=== PATIENT | female | born 1960 | race Caucasian/White ===

== ENCOUNTER 2017-12-28 19:47 | Inpatient (IN) | payer OTHER, SELFPAY ==
[2017-12-28] VITALS (9 sets, daily range): BP systolic 151–216; BP diastolic 84–130; PULSE 54–75; RESP 16–24; TEMP 36.6–37; O2SAT 96–100; BMI 20.7; BMI 19.8
--- NOTE | 2017-12-28 20:10 | EKG12_ITS ---
Test Reason : CP Blood Pressure : / mmHG Vent. Rate : 058 BPM Atrial Rate : 058 BPM P-R Int : 148 ms QRS Dur : 084 ms QT Int : 428 ms P-R-T Axes : 076 048 043 degrees QTc Int : 420 ms Sinus bradycardia Otherwise normal ECG Confirmed by ANEL JAMES, ZANA ([id number]), purchase request editor SHIN DAVENPORT ([id number]) on 12/30/2017 9:18:16 AM Referred By: Confirmed By:ZANA TAM MD
--- NOTE | 2017-12-28 20:10 | CT_ITS ---
STUDY: CT BRAIN WITHOUT CONTRAST REASON FOR EXAM: Female, 57 years old. Headache. RADIATION DOSAGE (If Supplied By Facility): CTDIvol = ( 44.99 ) mGy, DLP = ( 779.24 ) mGycm TECHNIQUE: Transaxial CT imaging of the brain was performed without administration of intravenous contrast material. Individualized dose optimization techniques were used for this CT. COMPARISON: None. FINDINGS: Normal soft tissue structures. Normal calvarium. Normal size ventricles and extra-axial spaces for the patient's age. Small low-density area that is not very well defined just inferior to the anterior most portion of the anterior horn of the left lateral ventricle. Otherwise, normal basal ganglia. Normal brainstem. Normal cerebellum. There is no intracranial hemorrhage. Normal visualized paranasal sinuses. CT/Brain/Head without Contrast IMPRESSION: Small low-density juxtapose the anterior horn of the left lateral ventricle probably in the adjacent deep white matter or putamen consistent with a subacute infarct, nonhemorrhagic. Otherwise normal CT exam of the brain. N.B. : The above information has been verbally conveyed by Tracy Dallas MD to Dr. Khoa Morris, Referring Physician, on 12/28/2017 20:57:30 (ET). Electronically Signed: Tracy Dallas MD at 20:53 EDT , Service support , N.B. : The above information has been verbally conveyed by Tracy Dallas MD to Dr. Khoa Morris, Referring Physician, on 12/28/2017 20:57:30 (ET).
--- NOTE | 2017-12-28 20:19 | ED.DCSUM_ITS ---
- ER Visit Summary Date of Service: 12/28/17 Chief Complaint: Bifrontal headache and elevated blood pressure History of Present Illness: The patient is a 57 F with no significant past medical history on herbal supplements presents with bifrontal headache that started 2-3 weeks ago. There are no alleviating, exacerbating precipitate factors. She has had intermittent blurred vision. She denies double vision or loss of vision. Denies ringing in ears. I trouble speech or swallowing. She denies any chest pain back pain shortness of breath. She denies nausea vomiting. Denies trouble with balance or walking. She had multiple elevated blood pressure readings. She had a significant elevated blood pressure reading at urgent care and was instructed to come to the emergency department. Physical Examination: Blood pressure 207 111. And the room she and her friends were playing. Once they stopped brain I began to ask questions and examined patient. Head is atraumatic normocephalic. Pupils are equal round reactive. Extraocular muscles are intact. TMs are pearly white with landmarks noted. Nares patent with no drainage. Posterior pharynx without erythema or exudate. Uvula is midline. There is no dysphonia or dysphasia. Trachea is midline. There is no stridor with auscultation of the neck. Difficult to see fundi secondary to cataracts. Cataracts worse on left than right. Neck supple. There is no carotid bruit. Heart is regular without murmur, gallop or rub. S1 and S2 are normal. Lungs are clear to auscultation with good movement of air bilaterally. Abdomen soft nontender. Patient is alert and oriented ?3. Motor is 5 over 5. Sensory is intact. DTRs are symmetric with no clonus or Babinski sign. Cranial 2 through 12 are intact. Cerebellar testing is normal. Test Results: CT of the head reveals a subacute ischemic stroke lateral left anterior horn best seen on image 19 of 42 axial cut. EKG reveals sinus bradycardia otherwise normal. CBC unremarkable. BMP potassium 3.4 and creatinine is 1.12 which is slightly low and elevated respectively. GFR is 54. Emergency Department Course and Treatment: To evaluate patient's headache with elevated blood pressure CT of the head was obtained. Also CBC, BMP and UA to evaluate for endorgan injury. She received 20 mg of labetalol. Treatment Plan: Patient was treated with labetalol 20 mg IV push ?2. Goal is a 15% reduction in systolic and diastolic pressure. The hospitalist has been paged to admit to either PCU stepdown versus ICU. Will review criteria to determine which unit is the most appropriate. Disposition: Admit for further monitoring testing Impression: 1. Hypertensive emergency 2. Subacute left hemispheric stroke lateral left anterior horn 3. Renal insufficiency 4. Sinus bradycardia documented on EKG This note was generated with [employer] dictation software. It may contain incorrect words, spelling, and punctuation that were not noted in review of the chart prior to signing ED Disposition - Plan for ED Patient: Chief Complaint: Hypertension Referrals: Tanner Lynch DO [Primary Care Provider] -
--- NOTE | 2017-12-28 20:29 | ED.RN ---
PHARMACY CALLED FOR TRANDATE
[2017-12-28 20:45] LABS: Absolute Lymphocyte Count 1.78 X10^3/ul (0.83-4.51); Absolute Neutrophil Count 4.6 X10^3/uL (2.0-7.7); Basophil# 0.01 X10^3/uL; Basophil% 0.1 % (0-1); Eosinophil# 0.07 X10^3/uL; Hematocrit 41.7 % (37-47); Hemoglobin 14.2 g/dl (12.0-15.0); Lymphocyte # 1.78 X10^3/ul (4.0); Lymphocyte % 25.4 % (19-41); Mean Corp Hgb Conc 34.1 g/gl (32-36); Mean Corpuscular Hgb 30.3 pg (27.0-32.0); Mean Corpuscular Volume 89.1 fL (81-99); Mean Platelet Vol. 10.3 fl (6.2-12.0); Monocyte# 0.58 X10^3/uL; Monocyte% 8.3 % (0-10); Neutrophil # 4.56 X10^3/uL (2.7-7.7); Neutrophil % 65.1 % (47-70); Platelet Count 191 K/mm3 (150-450); RBC Distribution Width SD 41.7 fl (35.1-43.9); Red Blood Count 4.68 M/mm3 (4.2-5.4)
[2017-12-28 20:48] LABS: POSITIVE COUNT NO; POSITIVE DIFFERENTIAL NO; POSITIVE MORPHOLOGY NO
[2017-12-28 20:49] LABS: Anion Gap 11 (5-15); BUN 15 mg/dL (7-18); BUN/Creat Ratio 13.4 RATIO (10-20); Calcium,Total 9.2 mg/dL (8.5-10.1); Chloride 108 mmol/L (98-107); Creatinine, Serum 1.12 mg/dL (0.55-1.02); EST Glomerular Filtration Rate 54 mL/min (>60); Est Glom Filt Rate - Afr Amer 65 mL/min (>60); Estimated Creatinine Clearance 53.76 ml/min; Glucose 91 mg/dL (74-106); Potassium 3.4 mmol/L (3.5-5.1); Sodium Level 143 mmol/L (136-145)
[2017-12-28] MEDS: HYDROcodone Bitartrate/Apap 5/325 Tablet PO (21:20)
--- NOTE | 2017-12-28 21:49 | ED.RN ---
PT CALM AT THIS TIME AND BP RECHECKED 156/[address] LINDQUIST WANTED 2ND DOSE OF TRANDATE HELD AT THIS TIME. PT INFORMED OF SAME.
--- NOTE | 2017-12-28 22:38 | HP.PCM_ITS ---
Problem List (1) Cephalgia Status: Acute Qualifiers: Headache type: unspecified Headache chronicity pattern: acute headache Intractability: intractable Qualified Code(s): R51 - Headache History of Present Illness Date of Admission: 12/28/17 Chief Complaint: Cephalgia The patient is a 57 year old F was seen in the emergency room at [facility] with chief complaint of a headache which she stated started approximately 2 weeks ago, she described the headaches location as the frontal area of her head, she denied any hearing loss, she denied any trouble with her speech, she did state she had some blurred vision but she was diagnosed with cataracts in the past. Examination of the patient in the emergency room revealed her blood pressure be elevated at 207/111, there were no neurological deficits on examination and the patient was appropriate and alert and oriented ? 3. Patient was given labetalol 20 mg IV push ?1, CT of the head was obtained which showed a subacute ischemic stroke in the area of the anterior horn of the left ventricle. CBC BMP and UA were obtained and were remarkable for a creatinine of 1.12 and a potassium of 3.4. Patient will be admitted to PCU for subacute stroke of the anterior horn of the left ventricle, her blood pressure will be monitored, she will have an echocardiogram performed, and age stroke scores will be carried out, she will be seen in consultation by neurology, she will have an MRI of her brain and an MRA of her head and neck performed. Patient will be placed on a baby aspirin a day, Lipitor 80 mg daily, and she will be seen by PT, OT, and speech therapy. Patient's potassium will be replaced and labs will be rechecked. 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 Denies: Cataracts, Conjunctivae Inflammation, Double vision, Drainage, Redness HEENT: Reports: Head Aches. Denies: Difficulty Hearing, Difficulty Swallowing, Dysphasia, Ear Pain, Eye Pain, Hard of Hearing, Hearing Changes, Nasal bleeding , Nasal Congestion, Post Nasal Drip Cardiovascular: Denies: Chest Pain, Claudication, Chest Pressure, Chest Tightness, Palpitations, Paroxysmal Noc. Dyspnea Respiratory: Denies: Cough, Hemoptysis, Pleuritic Pain, Shortness of Breath, Shortness of breath at rest, Shortness of breath upon exertion, Sputum production Gastrointestinal: Denies: Abdominal Pain, Constipation, Diarrhea, Hematemesis, Hematochezia, Nausea, Melena, Vomiting Genitourinary: Denies: Dysuria, Frequency, Hematuria, Hesitancy, Urgency Gynecological: Denies: Breast symptoms Musculoskeletal: Denies: Foot Pain, Hand Pain, Joint Pain, Joint stiffness, Joint swelling, Joint Tenderness, Leg Pain Skin: Denies: Dryness, Pruritis, Rash Neurological: Reports: Headaches - Over the last 2 weeks. Denies: Balance problems, Blurred vision, Double vision, Slurred speech, Difficulty swallowing, Focal weakness, Incoordination, Numbness, Tingling Psychiatric: Reports: Anxiety - Due to recent job loss. Denies: Depression, Homicidal Ideations, Suicidal Ideations Endocrine: Denies: Change in Body Habitus, Heat/ Cold Intolerance, Polydipsia, Polyuria Hematologic/ Lymphatic: Denies: Adenopathy, Anemia, Easy Bruising, Easy Bleeding , Petechiae, Purpura VTE Information - Inpt Only VTE Present on Admission: No VTE Mechan Device Prophylaxis: SCD's VTE Pharm Prophylaxis ordered?: No Reason prophylaxis not ordered:: Treatment Not Indicated Patient Problems: Active and Suspected Problems Cephalgia (Acute) - Physical Exam General: Alert, Oriented x3, Cooperative, No apparent distress, Well developed, Well nourished HEENT: Atraumatic, PERRLA, EOMI, Normocephalic Oral: Moist Mucosa Neck: Supple, No JVD, Negative Carotid Bruits, No Nuchal Rigidity, Trachea Midline, Thyroid Normal Size and Texture Lungs: Clear to auscultation, Normal air movement, No rhonchi, No wheeze, No rales Cardiovascular: Regular rate, Regular Rhythm, Normal S1, Normal S2, No murmurs, No Ectopic Activity, PMI Normal, No rub noted, No Gallop Abdomen: Bowel Sounds Present, Soft, Non Tender, Non-Distended, No hernias noted Extremities: No clubbing, No cyanosis, No edema, Capillary Refill Less than 3 Seconds Skin: No rashes, No breakdown Musculoskeletal: No Tenderness to Palpation of Joints or Extremities Neurological: Cranial nerves II-XII grossly intact, Neuro grossly intact, Muscle tone normal, Sensory exam intact to light touch and pain, Coordination normal Psych/Mental Status: Appropriate, Anxious, Alert and oriented to time, place, person, mood and affect Vital Signs Temp Pulse Resp BP Pulse Ox 97.9 F 54 L 16 156/108 H 96 12/28/17 19:48 12/28/17 21:47 12/28/17 21:47 12/28/17 21:47 12/28/17 21:47 Oxygen Delivery Method Room Air Weight: 60 kg Body Mass Index (BMI) 20.7 Laboratory Tests Past 24 Hrs 12/28/17 12/28/17 20:21 20:21 WBC 7.0 RBC 4.68 Hgb 14.2 Hct 41.7 MCV 89.1 MCH 30.3 MCHC 34.1 RDW 13.0 RDW Differential 41.7 Plt Count 191 MPV 10.3 Immature Gran % (Auto) 0.100 Neut % (Auto) 65.1 Lymph % (Auto) 25.4 [place] % (Auto) 8.3 Eos % (Auto) 1.0 Baso % (Auto) 0.1 Absolute Neuts (auto) 4.6 Absolute Lymphs (auto) 1.78 Total Counted Not Reportable Sodium 143 Potassium 3.4 L Chloride 108 H Carbon Dioxide 24.0 Anion Gap 11 BUN 15 Creatinine 1.12 H Estim Creat Clear Calc 53.76 Est GFR (MDRD) Af Amer 65 Est GFR (MDRD) Non-Af 54 L BUN/Creatinine Ratio 13.4 Glucose 91 Calcium 9.2 Assessment/Plan All Active Problems Cephalgia (Acute) #1 subacute ischemic stroke anterior horn of the left ventricle-patient will be admitted to PCU, she will be given a baby aspirin a day and Lipitor 80 mg daily , echocardiogram will be performed, she will have an MRI of her brain and MRA of her head and neck performed, she will be seen by neurology, PT, OT, and speech therapy. #2 hypertension-unknown whether this is a result of the patient's stroke or if she had hypertension before her stroke, blood pressure will be monitored, patient tells this examiner that her blood pressure was checked in July 2017 and was found to be normal, she has had no history of hypertension in the past. #3 hypokalemia-mild, patient will be given oral potassium and labs will be rechecked #4 slight elevation of the patient's creatinine-significance unknown, labs will be rechecked #5 cephalgia-probably secondary to subacute stroke, Tylenol for headache Code Visit Inpatient E&M: 93648 Init Hosp L3
--- NOTE | 2017-12-28 22:41 | NURSING ---
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
--- NOTE | 2017-12-28 23:06 | ECHOD_ITS ---
Reason For Study: TIA/CVA Procedure This was a 2D Doppler, Color Flow transthoracic echocardiogram. Exam performed portable in patient room. Left Ventricle Normal size and thickness. The estimated ejection fraction is 65 %. Normal diastology for age. No regional wall motion abnormalities noted. Right Ventricle Normal size and thickness. Normal systolic function. Atria Normal left atrium. Normal right atrium. Normal atrial septum. Bubble contrast study negative for right to left interatrial shunt. Mitral Valve The mitral valve is structurally normal. No prolapse or stenosis seen. Trivial mitral valve insufficiency. Tricuspid Valve Normal tricuspid valve. Trivial tricuspid valve insufficiency. Right ventricular systolic pressure estimated to be 32 mmHg. Aortic Valve Trisinus/trileaflet aortic valve. Pulmonic Valve Normal pulmonic valve. Great Vessels Normal aortic root. Normal arch. Normal inferior vena cava. Inferior vena cava collapse with sniff. Pericardium/Pleural No pericardial effusion. Medication Performed a rapid injection of agitated mix of 9 cc saline and 1cc air to assess for atrial septal defect. MMode/2D Measurements & Calculations LVIDd: 4.3 cm IVSd: 0.94 cm Ao root diam: 2.9 cm LVIDs: 2.5 cm LVPWd: 0.90 cm LA dimension: 3.0 cm RVDd: 3.3 cm FS: 43.3 % LAV(MOD-bp): 41.1 ml LA A4 area: 14.0 cm2 RA A4 area: 14.0 cm2 LAV(MOD-bp) Indexed: 24.5 ml/m2 LAV(MOD-sp2): 39.9 ml LAV(MOD-sp4): 33.8 ml Doppler Measurements & Calculations MV E max tim: 86.1 cm/sec Lat Peak E' Tim: 12.3 cm/sec Med Peak E' Tim: 9.5 cm/sec MV A max tim: 37.9 cm/sec E/E' lat: 7.0 E/E' med: 9.1 MV E/A: 2.3 Ao V2 max: 114.8 cm/sec LV V1 max: 107.9 cm/sec PA V2 max: 67.2 cm/sec Ao max P.3 mmHg LV V1 max P.7 mmHg TR max tim: 246.4 cm/sec TR max P.4 mmHg Interpretation Summary The estimated ejection fraction is 65 %. Trivial tricuspid valve insufficiency. Right ventricular systolic pressure estimated to be 32 mmHg. Bubble contrast study negative for right to left interatrial shunt. There is no comparison study available. Ordering Physician: Porfirio Andrews Referring Physician: Tanner Lynch Performed By: Allison Blanco RDCS, RVT
[2017-12-29] VITALS (7 sets, daily range): BP systolic 111–138; BP diastolic 65–75; PULSE 53–63; RESP 16–18; TEMP 36.7–37; O2SAT 97–98; BMI 19.8
[2017-12-29 00:04] LABS: Bacteria 0 SEEN /hpf (None Seen); Mucous, Urine 0 SEEN /hpf (<or=2+); Red Blood Cells-Urine 0 SEEN /hpf (0-5); White Blood Cells 0 SEEN /hpf (0-5)
[2017-12-29 00:06] LABS: Color, Urine Yellow (Yellow); Glucose, Dipstick Normal (Normal); Ketone-Dipstick 5 mg/dl (Negative); Leukocyte Esterase-Dipstick Negative /ul (Negative); Nitrite-Dipstick Negative (Negative); Occult Blood-Urine Negative /ul (Negative); Protein-Dipstick Negative (Negative); Specific Gravity, Urine 1.005 (1.002-1.030); Urine Bilirubin Dipstick Negative (Negative); Urine Clarity Clear (Clear); Urine Urobilinogen Normal (Normal)
[2017-12-29] MEDS: Atorvastatin Calcium 80 MG Tablet PO (00:09)
[2017-12-29] MEDS: Aspirin 81 MG TAB.CHEW PO ×2 (00:09→08:54)
[2017-12-29 00:12] LABS: Squamous Epithelial Cells - UA 0-5 SEEN /hpf (5-10)
[2017-12-29] MEDS: ALPRAZolam 0.5 MG Tablet PO ×2 (00:21→11:44)
[2017-12-29 06:09] LABS: Cholesterol 182 mg/dL (200); High Density Lipoprotein 70 mg/dL; Triglycerides 99 mg/dL; Very Low Density Lipoprotein 20 mg/dL (5-40)
--- NOTE | 2017-12-29 07:51 | PCM.PROGNOTE ---
Patient Problems: Active and Suspected Problems Cephalgia (Acute) Subjective: Chief complaint: Follow-up after admission for headache and probable subacute brain infarct. Patient seen and examined. No acute events overnight. She mentioned that her headache is getting better, still complaining of neck pain. Denied slurred speech or blurry vision. Denied facial numbness or tingling. Denied focal arm or leg weakness. Her vital signs are stable. - Physical Exam General: Alert, Oriented x3, Cooperative, No apparent distress HEENT: Atraumatic, PERRLA, EOMI Oral: Moist Mucosa, No Gingival or Mucosal Lesions/ Ulcerations Neck: Supple, No JVD, Negative Carotid Bruits, Trachea Midline, Thyroid Normal Size and Texture Lungs: Clear to auscultation, No rhonchi, No wheeze, No rales, Diminished Cardiovascular: Regular rate, Regular Rhythm, Normal S1, Normal S2, No murmurs Abdomen: Bowel Sounds Present, Soft, Non Tender, Non-Distended, No Hepato-splenomegaly Extremities: No clubbing, No cyanosis, No edema Skin: No rashes, No breakdown Lymphatic: No Cervical, Supraclavicular, or Inguinal Adenopathy Neurological: Cranial nerves II-XII grossly intact, Motor Exam 5/5 strength throughout Psych/Mental Status: Normal Affect, Appropriate, Alert and oriented to time, place, person, mood and affect Vital Signs Temp Pulse Resp BP Pulse Ox 98.1 F 60 16 111/65 97 12/29/17 04:35 12/29/17 07:23 12/29/17 04:35 12/29/17 04:35 12/29/17 04:35 Oxygen Delivery Method Room Air Weight: 129 lb 6.581 oz Body Mass Index (BMI) 19.8 Intake and Output for Last 24 Hours 12/27/17 12/28/17 12/29/17 23:59 23:59 23:59 Intake Total 100 / 100 50 / 50 Balance 100 / 100 50 / 50 Laboratory Tests Past 24 Hrs 12/28/17 12/29/17 23:05 05:10 Triglycerides 99 Cholesterol 182 LDL Cholesterol 92 VLDL Cholesterol 20 HDL Cholesterol 70 Urine Color Yellow Urine Clarity Clear Urine pH 7.0 Ur Specific [place] 1.005 Urine Protein Negative Urine Glucose (UA) Normal Urine Ketones 5 H Urine Occult Blood Negative Urine Nitrite Negative Urine Bilirubin Negative Urine Urobilinogen Normal Ur Leukocyte Esterase Negative Urine RBC 0 SEEN Urine WBC 0 SEEN Ur Squamous Epith Cells 0-5 SEEN Urine Bacteria 0 SEEN Urine Mucus 0 SEEN Clinical Impression(s) from Imaging Studies Brain CT 12/28/17 20:10 IMPRESSION: Small low-density juxtapose the anterior horn of the left lateral ventricle probably in the adjacent deep white matter or putamen consistent with a subacute infarct, nonhemorrhagic. Otherwise normal CT exam of the brain. N.B. : The above information has been verbally conveyed by Tracy Dallas MD to Dr. Khoa Morris, Referring Physician, on 12/28/2017 20:57:30 (ET). Electronically Signed: Tracy Dallas MD at 20:53 EDT , Service support , N.B. : The above information has been verbally conveyed by Tracy Dallas MD to Dr. Khoa Morris, Referring Physician, on 12/28/2017 20:57:30 (ET). Medical Necessity - Tobacco Use Smoking Status: Never smoker Tobacco Use: Non-smoker Assessment/Plan All Active Problems Cephalgia (Acute) This is a 57 years old female patient admitted because of headache, neck pain and elevated blood pressure and she was found to have findings consistent with probable subacute infarct of the anterior horn of the left lateral ventricle. #1 headache/neck pain/probable subacute infarct of the anterior horn of the left lateral ventricle: CT scan brain reviewed. She has no focal deficit on examination. Headache improved. Today, her vital signs are stable, blood pressure normal. Routine blood work was remarkable for mild hypokalemia, otherwise normal. Lipid profile is unremarkable. EKG revealed sinus bradycardia with heart rate of 58 bpm, no other acute findings. She is on aspirin and statins. MRI brain as well as MRA of the neck, 2D echocardiogram ordered. Neurology consulted. #2 hypertensive emergency: Upon arrival to ER, blood pressure was 207/111. This qualifies for diagnosis of hypertensive emergency if the MRI of the brain confirming the diagnosis of acute stroke. She was given 1 dose of IV labetalol in the ER yesterday. Blood pressure came down, today's blood pressure is 111/65, other vital signs stable. She has no history of hypertension and she takes no antihypertensive medications. Plan to monitor. #3 mild hypokalemia: Potassium is 3.4, she received 1 dose of K-Dur 20 mEq. Plan to start him on gentle IV fluids for hydration. #4 DVT prophylaxis: Low risk patient, no prophylaxis indicated. This note was generated with [employer] dictation software. It may contain incorrect words, spelling, and punctuation that were not noted in checking the note before signing.
--- NOTE | 2017-12-29 08:00 | PN_ITS ---
Patient Problems: Active and Suspected Problems Cephalgia (Acute) Subjective: Chief complaint: Follow-up after admission for headache and probable subacute brain infarct. Patient seen and examined. No acute events overnight. She mentioned that her headache is getting better, still complaining of neck pain. Denied slurred speech or blurry vision. Denied facial numbness or tingling. Denied focal arm or leg weakness. Her vital signs are stable. - Physical Exam General: Alert, Oriented x3, Cooperative, No apparent distress HEENT: Atraumatic, PERRLA, EOMI Oral: Moist Mucosa, No Gingival or Mucosal Lesions/ Ulcerations Neck: Supple, No JVD, Negative Carotid Bruits, Trachea Midline, Thyroid Normal Size and Texture Lungs: Clear to auscultation, No rhonchi, No wheeze, No rales, Diminished Cardiovascular: Regular rate, Regular Rhythm, Normal S1, Normal S2, No murmurs Abdomen: Bowel Sounds Present, Soft, Non Tender, Non-Distended, No Hepato- splenomegaly Extremities: No clubbing, No cyanosis, No edema Skin: No rashes, No breakdown Lymphatic: No Cervical, Supraclavicular, or Inguinal Adenopathy Neurological: Cranial nerves II-XII grossly intact, Motor Exam 5/5 strength throughout Psych/Mental Status: Normal Affect, Appropriate, Alert and oriented to time, place, person, mood and affect Vital Signs Temp Pulse Resp BP Pulse Ox 98.1 F 60 16 111/65 97 12/29/17 04:35 12/29/17 07:23 12/29/17 04:35 12/29/17 04:35 12/29/17 04:35 Oxygen Delivery Method Room Air Weight: 129 lb 6.581 oz Body Mass Index (BMI) 19.8 Intake and Output for Last 24 Hours 12/27/17 12/28/17 12/29/17 23:59 23:59 23:59 Intake Total 100 / 100 50 / 50 Balance 100 / 100 50 / 50 Laboratory Tests Past 24 Hrs 12/28/17 12/29/17 23:05 05:10 Triglycerides 99 Cholesterol 182 LDL Cholesterol 92 VLDL Cholesterol 20 HDL Cholesterol 70 Urine Color Yellow Urine Clarity Clear Urine pH 7.0 Ur Specific [place] 1.005 Urine Protein Negative Urine Glucose (UA) Normal Urine Ketones 5 H Urine Occult Blood Negative Urine Nitrite Negative Urine Bilirubin Negative Urine Urobilinogen Normal Ur Leukocyte Esterase Negative Urine RBC 0 SEEN Urine WBC 0 SEEN Ur Squamous Epith Cells 0-5 SEEN Urine Bacteria 0 SEEN Urine Mucus 0 SEEN Clinical Impression(s) from Imaging Studies Brain CT 12/28/17 20:10 IMPRESSION: Small low-density juxtapose the anterior horn of the left lateral ventricle probably in the adjacent deep white matter or putamen consistent with a subacute infarct, nonhemorrhagic. Otherwise normal CT exam of the brain. N.B. : The above information has been verbally conveyed by Tracy Dallas MD to Dr. Khoa Morris, Referring Physician, on 12/28/2017 20:57:30 (ET). Electronically Signed: Tracy Dallas MD at 20:53 EDT , Service support , N.B. : The above information has been verbally conveyed by Tracy Dallas MD to Dr. Khoa Morris, Referring Physician, on 12/28/2017 20:57:30 (ET). Medical Necessity - Tobacco Use Smoking Status: Never smoker Tobacco Use: Non-smoker Assessment/Plan All Active Problems Cephalgia (Acute) This is a 57 years old female patient admitted because of headache, neck pain and elevated blood pressure and she was found to have findings consistent with probable subacute infarct of the anterior horn of the left lateral ventricle. #1 headache/neck pain/probable subacute infarct of the anterior horn of the left lateral ventricle: CT scan brain reviewed. She has no focal deficit on examination. Headache improved. Today, her vital signs are stable, blood pressure normal. Routine blood work was remarkable for mild hypokalemia, otherwise normal. Lipid profile is unremarkable. EKG revealed sinus bradycardia with heart rate of 58 bpm, no other acute findings. She is on aspirin and statins. MRI brain as well as MRA of the neck, 2D echocardiogram ordered. Neurology consulted. #2 hypertensive emergency: Upon arrival to ER, blood pressure was 207/111. This qualifies for diagnosis of hypertensive emergency if the MRI of the brain confirming the diagnosis of acute stroke. She was given 1 dose of IV labetalol in the ER yesterday. Blood pressure came down, today's blood pressure is 111/65 , other vital signs stable. She has no history of hypertension and she takes no antihypertensive medications. Plan to monitor. #3 mild hypokalemia: Potassium is 3.4, she received 1 dose of K-Dur 20 mEq. Plan to start him on gentle IV fluids for hydration. #4 DVT prophylaxis: Low risk patient, no prophylaxis indicated. This note was generated with [employer] dictation software. It may contain incorrect words, spelling, and punctuation that were not noted in checking the note before signing.
--- NOTE | 2017-12-29 08:19 | MRI_ITS ---
STUDY: MRA OF THE HEAD WITHOUT CONTRAST REASON FOR EXAM: Female, 57 years old. cva, H/A, NECK PAIN,INCREASED BP, DIZZY. TECHNIQUE: 3-D mnuh-ir-gjkjuv (TOF) imaging was performed with MIPs. The study was performed unenhanced. COMPARISON: None. FINDINGS: Normal bilateral petrous carotid arteries. Normal right cavernous carotid artery with a normal supraclinoid bifurcation. Normal left cavernous carotid artery with a normal supraclinoid bifurcation. Normal right A1 segments of the anterior cerebral artery. Normal left A1 segments of the anterior cerebral artery. Normal intact anterior communicating artery (ACOM). Normal bilateral A2 segments of the anterior cerebral arteries. Normal right M1 and M2 segments of the middle cerebral arteries, with a normal M1 bifurcation. Normal left M1 and M2 segments of the middle cerebral arteries, with a normal M1 bifurcation. Normal right posterior communicating artery (PCOM). Normal left posterior communicating artery (PCOM). Normal bilateral vertebral arteries. Normal basilar artery with a normal basilar bifurcation. The visualized bilateral superior cerebellar (SCA) arteries are normal. Normal bilateral P1, P2 and visualized P3 segments of the posterior cerebral arteries. There is no demonstrated aneurysm of the [place] of [place]. There is no major vessel occlusion or hemodynamically significant stenosis. There is no demonstrated abnormality of the visualized brain. MRI/MRA Head ONLY without Contrast IMPRESSION: Normal MRA of the head Electronically Signed: Teddy Guadarrama MD at 14:45 EDT Tel , Service support ,
--- NOTE | 2017-12-29 08:19 | MRI_ITS ---
STUDY: MRI BRAIN WITHOUT CONTRAST REASON FOR EXAM: Female, 57 years old. subacute ishemic stroke L anterior horn cva, H/A, NECK PAIN,INCREASED BP, DIZZY. TECHNIQUE: Standardized multiplanar fat and water weighted pulse sequences were obtained. COMPARISON: 12/28/2017 CT of the head. FINDINGS: Normal size of the ventricles and extra-axial spaces for the patient's age. There are multiple white matter hyperintensities, distributed throughout the deep white matter tracts of the cerebral hemispheres, consistent with mild chronic white matter ischemic changes. Most prominent hyperintensity is at the left anterior frontal horn corresponding to the hypodensity seen on the prior CT. Normal bilateral basal ganglia. Normal thalami. There is no extra-axial fluid accumulation. Normal flow voids within the major intracranial circulation suggesting patency by spin echo criteria. Normal sella turcica, pituitary gland, infundibular stalk, optic chiasm and hypothalamus. Normal tectal plate and pineal gland. Normal midbrain, brandon and medulla. Normal cerebellum. Normal basal cisterns. Normal bilateral temporal bones. Normal bilateral internal auditory canals. No demonstrated orbital abnormality, within the constraints of a routine brain study. Normal visualized paranasal sinuses. Normal calvarium and skull base. Normal visualized soft tissue structures. Normal visualized upper cervical spine. MRI/Brain without Contrast IMPRESSION: No infarction. Chronic microvascular ischemic changes. Electronically Signed: Teddy Guadarrama MD at 13:46 EDT Tel , Service support ,
--- NOTE | 2017-12-29 08:20 | MRI_ITS ---
STUDY: MRA NECK WITH AND WITHOUT CONTRAST REASON FOR EXAM: Female, 57 years old. cva, H/A, NECK PAIN,INCREASED BP, DIZZY. TECHNIQUE: 3-D [id number]-lk-[id number] (TOF) imaging was performed in an 1.5 T MRI scanner. 7 ml of Gadavist was administered for the contrast enhanced images. COMPARISON: None. FINDINGS: RIGHT CAROTID ARTERIES: Normal right common carotid artery (CCA). Normal right common carotid bulb. Normal origin of the right internal carotid (ICA) artery without a hemodynamically significant stenosis. Normal visualized cervical portion of the right internal carotid artery. Normal origin of the right external carotid artery (ECA). LEFT CAROTID ARTERIES: Normal left common carotid artery (CCA). Normal left common carotid bulb. Normal origin of the left internal carotid (ICA) artery without a hemodynamically significant stenosis. Normal visualized cervical portion of the left internal carotid artery. Normal origin of the left external carotid artery (ECA). VERTEBRAL ARTERIES: Normal antegrade flow within the bilateral vertebral artery without a hemodynamically significant stenosis. MRI/MRA Neck WITH and W/O Contrast IMPRESSION: Normal bilateral cervical carotid and vertebral arteries. Electronically Signed: Teddy Guadarrama MD at 14:46 EDT Tel , Service support ,
[2017-12-29] MEDS: Acetaminophen 325 MG Tablet 650 MG PO (08:54)
[2017-12-29] MEDS: 0.9% Normal Saline 1,000 ML 75 ML IV (08:56)
--- NOTE | 2017-12-29 11:13 | PCM.CONS.GEN ---
Reason for Consult Date of Consultation: 12/29/17 Reason for Consultation: headache History of Present Illness: The patient is a 57 year old F with three week history of headache, recent heart palpitations, and elevated bp presented to ed due to neck pain (now improved) and headache associated with elevated bp. reports taking tylenol, ibuprofen, and asa daily for headaches. reports 2-3 ibuprofen, and yesterday took 4 asa (all 81mg). reports normally has no headache, has severe stress recently, also insomnia for which she takes pm ibuprofen. reports headache improved from 10/10 to 3/10. neck pain is now 0/10. quit smoking remotely. no snoring. per h&p:The patient is a 57 year old F was seen in the emergency room at [facility] with chief complaint of a headache which she stated started approximately 2 weeks ago, she described the headaches location as the frontal area of her head, she denied any hearing loss, she denied any trouble with her speech, she did state she had some blurred vision but she was diagnosed with cataracts in the past. Examination of the patient in the emergency room revealed her blood pressure be elevated at 207/111, there were no neurological deficits on examination and the patient was appropriate and alert and oriented ?3. Patient was given labetalol 20 mg IV push ?1, CT of the head was obtained which showed a subacute ischemic stroke in the area of the anterior horn of the left ventricle. CBC BMP and UA were obtained and were remarkable for a creatinine of 1.12 and a potassium of 3.4. Patient will be admitted to PCU for subacute stroke of the anterior horn of the left ventricle, her blood pressure will be monitored, she will have an echocardiogram performed, and age stroke scores will be carried out, she will be seen in consultation by neurology, she will have an MRI of her brain and an MRA of her head and neck performed. Patient will be placed on a baby aspirin a day, Lipitor 80 mg daily, and she will be seen by PT, OT, and speech therapy. 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 History: No pertinent CONICAL MIXER history Lives: Spouse/ Significant Other Smoking Status: Never smoker Tobacco Use: Non-smoker Alcohol: None Drugs: None - *Family History Maternal History Items: Cancer - Colon cancer Paternal History Items: Unknown Patient Problems: Active and Suspected Problems Cephalgia (Acute) - Physical Exam Vital Signs Temp Pulse Resp BP Pulse Ox 36.7 C 54 L 17 114/73 97 12/29/17 08:08 12/29/17 08:08 12/29/17 08:08 12/29/17 08:08 12/29/17 08:08 Oxygen Delivery Method Room Air Weight: 58.7 kg Body Mass Index (BMI) 19.8 Intake and Output for Last 24 Hours 12/27/17 12/28/17 12/29/17 23:59 23:59 23:59 Intake Total 100 / 100 50 / 50 Balance 100 / 100 50 / 50 Laboratory Tests Past 24 Hrs 12/28/17 12/29/17 23:05 05:10 Triglycerides 99 Cholesterol 182 LDL Cholesterol 92 VLDL Cholesterol 20 HDL Cholesterol 70 Urine Color Yellow Urine Clarity Clear Urine pH 7.0 Ur Specific [place] 1.005 Urine Protein Negative Urine Glucose (UA) Normal Urine Ketones 5 H Urine Occult Blood Negative Urine Nitrite Negative Urine Bilirubin Negative Urine Urobilinogen Normal Ur Leukocyte Esterase Negative Urine RBC 0 SEEN Urine WBC 0 SEEN Ur Squamous Epith Cells 0-5 SEEN Urine Bacteria 0 SEEN Urine Mucus 0 SEEN Current Home Med List Medication Instructions Recorded Confirmed Type NK [NK] 12/28/17 12/28/17 History Current Medications Generic Name Dose Route Start Last Admin Trade Name Freq PRN Reason Stop Dose Admin Acetaminophen 650 mg 12/28/17 23:06 12/29/17 08:54 Tylenol PO 650 mg Q4H PRN PRN Administration Headache/Temp>99F Alprazolam 0.5 mg 12/28/17 23:06 12/29/17 00:21 Xanax PO 0.5 mg TID PRN PRN Administration ANXIETY Aspirin 81 mg 12/29/17 08:00 12/29/17 08:54 Aspirin, Baby PO 81 mg DAILY@0800 [facility] Administration Atorvastatin Calcium 80 mg 12/29/17 22:00 12/29/17 00:09 Lipitor PO 80 mg DAILY@2200 TRACY Administration Sodium Chloride 1,000 mls @ 100 mls/hr 12/29/17 10:30 IV 12/29/17 20:28 .Q10H TRACY Sodium Chloride 5 - 30 ml 12/28/17 23:42 IV UD PRN SALINE FLUSH I reviewed the MRI and MRA of her head and neck. There is no acute stroke. She does have mild subcortical white matter disease and it looks like there may be an old small stroke in the left lateral subcortical white matter adjacent to the anterior horn. The MRA does not show any significant stenosis. She has a left dominant vert. Assessment/Plan All Active Problems Cephalgia (Acute) suspect htn, headache, confounded by anxiety, insomnia asa 325mg daily zoloft 100mg daily ok to dc from neuro
--- NOTE | 2017-12-29 11:17 | CON.PCM_ITS ---
Reason for Consult Date of Consultation: 12/29/17 Reason for Consultation: headache History of Present Illness: The patient is a 57 year old F with three week history of headache, recent heart palpitations, and elevated bp presented to ed due to neck pain (now improved) and headache associated with elevated bp. reports taking tylenol, ibuprofen, and asa daily for headaches. reports 2-3 ibuprofen, and yesterday took 4 asa (all 81mg). reports normally has no headache, has severe stress recently, also insomnia for which she takes pm ibuprofen. reports headache improved from 10/10 to 3/10. neck pain is now 0/10. quit smoking remotely. no snoring. per h&p:The patient is a 57 year old F was seen in the emergency room at [facility] with chief complaint of a headache which she stated started approximately 2 weeks ago, she described the headaches location as the frontal area of her head, she denied any hearing loss, she denied any trouble with her speech, she did state she had some blurred vision but she was diagnosed with cataracts in the past. Examination of the patient in the emergency room revealed her blood pressure be elevated at 207/111, there were no neurological deficits on examination and the patient was appropriate and alert and oriented ?3. Patient was given labetalol 20 mg IV push ?1, CT of the head was obtained which showed a subacute ischemic stroke in the area of the anterior horn of the left ventricle. CBC BMP and UA were obtained and were remarkable for a creatinine of 1.12 and a potassium of 3.4. Patient will be admitted to PCU for subacute stroke of the anterior horn of the left ventricle, her blood pressure will be monitored, she will have an echocardiogram performed, and age stroke scores will be carried out, she will be seen in consultation by neurology, she will have an MRI of her brain and an MRA of her head and neck performed. Patient will be placed on a baby aspirin a day, Lipitor 80 mg daily, and she will be seen by PT, OT, and speech therapy. 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: No pertinent TR[employer] PINION [employer] WHEEL history Lives: Spouse/ Significant Other Smoking Status: Never smoker Tobacco Use: Non-smoker Alcohol: None Drugs: None - *Family History Maternal History Items: Cancer - Colon cancer Paternal History Items: Unknown Patient Problems: Active and Suspected Problems Cephalgia (Acute) - Physical Exam Vital Signs Temp Pulse Resp BP Pulse Ox 36.7 C 54 L 17 114/73 97 12/29/17 08:08 12/29/17 08:08 12/29/17 08:08 12/29/17 08:08 12/29/17 08:08 Oxygen Delivery Method Room Air Weight: 58.7 kg Body Mass Index (BMI) 19.8 Intake and Output for Last 24 Hours 12/27/17 12/28/17 12/29/17 23:59 23:59 23:59 Intake Total 100 / 100 50 / 50 Balance 100 / 100 50 / 50 Laboratory Tests Past 24 Hrs 12/28/17 12/29/17 23:05 05:10 Triglycerides 99 Cholesterol 182 LDL Cholesterol 92 VLDL Cholesterol 20 HDL Cholesterol 70 Urine Color Yellow Urine Clarity Clear Urine pH 7.0 Ur Specific [place] 1.005 Urine Protein Negative Urine Glucose (UA) Normal Urine Ketones 5 H Urine Occult Blood Negative Urine Nitrite Negative Urine Bilirubin Negative Urine Urobilinogen Normal Ur Leukocyte Esterase Negative Urine RBC 0 SEEN Urine WBC 0 SEEN Ur Squamous Epith Cells 0-5 SEEN Urine Bacteria 0 SEEN Urine Mucus 0 SEEN Current Home Med List Medication Instructions Recorded Confirmed Type NK [NK] 12/28/17 12/28/17 History Current Medications Generic Name Dose Route Start Last Admin Trade Name Freq PRN Reason Stop Dose Admin Acetaminophen 650 mg 12/28/17 23:06 12/29/17 08:54 Tylenol PO 650 mg Q4H PRN PRN Administration Headache/Temp>99F Alprazolam 0.5 mg 12/28/17 23:06 12/29/17 00:21 Xanax PO 0.5 mg TID PRN PRN Administration ANXIETY Aspirin 81 mg 12/29/17 08:00 12/29/17 08:54 Aspirin, Baby PO 81 mg DAILY@0800 [facility] Administration Atorvastatin Calcium 80 mg 12/29/17 22:00 12/29/17 00:09 Lipitor PO 80 mg DAILY@2200 TRACY Administration Sodium Chloride 1,000 mls @ 100 mls/hr 12/29/17 10:30 IV 12/29/17 20:28 .Q10H TRACY Sodium Chloride 5 - 30 ml 12/28/17 23:42 IV UD PRN SALINE FLUSH I reviewed the MRI and MRA of her head and neck. There is no acute stroke. She does have mild subcortical white matter disease and it looks like there may be an old small stroke in the left lateral subcortical white matter adjacent to the anterior horn. The MRA does not show any significant stenosis. She has a left dominant vert. Assessment/Plan All Active Problems Cephalgia (Acute) suspect htn, headache, confounded by anxiety, insomnia asa 325mg daily zoloft 100mg daily ok to dc from neuro
--- NOTE | 2017-12-29 12:07 | CASEMGMT ---
This RN CM to room to complete CM assessment and therapy is at bedside at this time. Will attempt again later. SStmitra RN CM
--- NOTE | 2017-12-29 13:00 | CASEMGMT ---
Face to Face with patient for initial transition planning/care coordination assessment. NATHALY AGUILAR introduced self and role at [facility], pt voices understanding and consents to assessment at this time. Pt is sitting up in bed in no distress at this time. Pt is A/O x4 at this time and answers all questions appropriately at this time. Care providers, pharmacy, and demographics verified. See attached link. Pt voices no further concerns/needs at this time. Advised pt to ask for CM if any further questions/concerns/needs arise, voices understanding. PLAN: [place] NATHALY AGUILAR
--- NOTE | 2017-12-29 14:21 | CM.ED ---
Social Work Note Referral from RN Ava AGUILAR, for emotional support. Introduced self and role at [facility]. The pt presents with pleasant affect as evidenced by smiling and willingness to participate in assessment. Pt's spouse, Uriel, present and pt verbally consents to have discussion with him present. Pt reports to live with spouse and denies access issues or anticipation of needs at discharge. Pt is independent with ADL's and this is confirmed by PT/OT evaluations here at [facility]. Pt denies substance abuse hx. Does report a hx of anxiety and depression. Denies being linked with a counselor. Declines resources for counseling services at this time. States that her hinduism ([facility]) in [place] is a good support. She claims that she is in a [place] and her eligibility services representative is aware and has been in contact. She declines to have hospital land commissioner in to speak with her. Inquire if she has any additional stressors other than the presenting medical issues and she states, lots of life stressors. Declines that here is anything SW can do except pray for me. Offer to reach out to our hospital land commissioner, not to visit her, but to pray for and pt is open to this. Identifies her primary supports as her spouse and her jerson/hinduism family. Pt made aware that SW is available if needs arise. Plan: Home Jade Echols, EXECUTIVE COMPENSATION ANALYST, RAMP SERVICE AGENT
--- NOTE | 2017-12-29 15:02 | PCM.DC ---
- Discharge Diagnoses Current Active Problems: Current Active and Chronic Problems Cephalgia (Acute) You will use the following diet at home:: Regular, Other Discharge Activity: Return to Normal Activity Weight Bearing Status: Full weight bearing Call your doctor if you observe: Fever of 101 or Higher, Shortness of breath, Dizziness, Fainting spells, Chest pain, Increased palpitations (irregular heartbeat), Uncontrolled pain Additional Instructions: Check your blood pressure once or twice daily for the next few days. Allergies/Adverse Reactions: Allergies No Known Allergies Allergy (Verified 12/28/17 19:50) Medications to take at Discharge Aspirin [Aspirin, Baby] 81 mg PO DAILY@0800 #90 tab.chew 12/29/17 Sertraline HCl [Zoloft] 100 mg PO DAILY #30 tab 12/29/17 The following prescriptions were given: Aspirin [Aspirin, Baby] 81 mg PO DAILY@0800 #90 tab.chew Sertraline HCl [Zoloft] 100 mg PO DAILY #30 tab Primary Care Physician: Tnaner Lynch DO [Primary Care Provider] - Please follow up with your Primary Care Physician in: 1-2 week.
--- NOTE | 2017-12-29 16:08 | PCM.DC.SUM ---
Discharge Date and Diagnosis Date of Admission: 12/28/17 Date of Discharge: 12/29/17 - Primary Discharge Diagnosis Active and Suspected Problems #1 suspected stroke, ruled out. #2 elevated blood pressure. #3 tension headache/anxiety.. Hospital Course and Treatment Imaging Results: 12/29/17 08:19 Brain without Contrast [MRI] Routine MRA Head ONLY without Contrast [MRI] Routine 12/29/17 08:20 MRA Neck WITH and W/O Contrast [MRI] Routine Clinical Impression(s) from Imaging Studies Brain CT 12/28/17 20:10 IMPRESSION: Small low-density juxtapose the anterior horn of the left lateral ventricle probably in the adjacent deep white matter or putamen consistent with a subacute infarct, nonhemorrhagic. Otherwise normal CT exam of the brain. N.B. : The above information has been verbally conveyed by Tracy Dallas MD to Dr. Khoa Morris, Referring Physician, on 12/28/2017 20:57:30 (ET). Electronically Signed: Tracy Dallas MD at 20:53 EDT , Service support , N.B. : The above information has been verbally conveyed by Tracy Dallas MD to Dr. Khoa Morris, Referring Physician, on 12/28/2017 20:57:30 (ET). Brain MRI 12/29/17 08:19 IMPRESSION: No infarction. Chronic microvascular ischemic changes. Electronically Signed: Teddy Guadarrama MD at 13:46 EDT Tel , Service support , Head MRA 12/29/17 08:19 IMPRESSION: Normal MRA of the head Electronically Signed: Teddy Guadarrama MD at 14:45 EDT Tel , Service support , Neck MRA 12/29/17 08:20 IMPRESSION: Normal bilateral cervical carotid and vertebral arteries. Electronically Signed: Teddy Guadarrama MD at 14:46 EDT Tel , Service support , Dr. Bennett, neurology. Procedures: 2-D Echocardiogram, EKG Summary of Care Provided: The patient is a 57 year old F presented to the emergency room because of 3 weeks history of headache and one day history of neck pain as well as elevated blood pressure. Upon arrival to ER, his blood pressure was highly elevated without history of hypertension. CT scan brain showed findings consistent with probable subacute infarction of the anterior horn of the left lateral ventricle. She was admitted for acute stroke workup. MRI brain showed no evidence of acute stroke or infarction. MRA of the head and neck were normal and without evidence of hemodynamically significant vascular disease or stenosis. 2D echocardiogram revealed normal ejection fraction with no significant valvular heart disease. Neurology consulted and stated that there is no evidence of acute stroke. Acute stroke ruled out. Her routine blood work was unremarkable only for mild hypokalemia which was replaced and corrected. Her lipid profile was normal. Upon arrival to ER, patient's blood pressure was 207/111. She received 1 dose of IV labetalol in the ER and since then, she did not receive any other antihypertensive medications. Her blood pressure came down back to normal without any other interventions. She was not started on any antihypertensive medications. Headache and neck pain improved. Patient discharged home in a stable medical condition, discharged on aspirin and Zoloft for insomnia and anxiety, I recommended to check her blood pressure at least twice daily for the next week and follow-up with her PCP in 1 week. There was no indication to start her on antihypertensive medications. Acute stroke ruled out. Discharge Activity: Return to Normal Activity Weight Bearing Status: Full weight bearing Call your doctor if you observe: Fever of 101 or Higher, Shortness of breath, Dizziness, Fainting spells, Chest pain, Increased palpitations (irregular heartbeat), Uncontrolled pain Home Medications: Medications to take at Discharge Aspirin [Aspirin, Baby] 81 mg PO DAILY@0800 #90 tab.chew 12/29/17 Sertraline HCl [Zoloft] 100 mg PO DAILY #30 tab 12/29/17 Following Prescrptions Were Given to Patient: Aspirin [Aspirin, Baby] 81 mg PO DAILY@0800 #90 tab.chew Sertraline HCl [Zoloft] 100 mg PO DAILY #30 tab Primary Care Physician: Tanner Lynch DO [Primary Care Provider] - Please follow up with your Primary Care Physician in: 1-2 week. Disposition: Home Minutes spent on discharge:: 26 Patient Condition:: Stable Medical Necessity - Tobacco Use Smoking Status: Never smoker Tobacco Use: Non-smoker Meaningful Use Info Meaningful Use Diagnoses (Choose all that apply): None applicable Code Visit Inpatient E&M: 34815 Disch Hosp
== END 2017-12-29 19:40 | disposition home or self-care (01) | DRG 103 ==
LOC: ED 22:08 → PCU 22:41
PROVIDERS: Admitting Provider Internal Medicine; Emergency Provider Emergency Medicine; Family Provider Family Medicine; PCP Family Medicine; Visit Provider Hospitalist
DX: G44.209 Tension-type headache, unspecified, not intractable (principal); I16.1 Hypertensive emergency; R00.1 Bradycardia, unspecified; E87.6 Hypokalemia; F41.9 Anxiety disorder, unspecified
CPT/HCPCS: 70450; 70544; 70549; 70551; 80048; 80061; 81001; 85025; 93005; 93306; 97161; 97165; 97802; 99283; A9585; J7030; A4216